=== PATIENT | female | born 1995 | race Caucasian/White ===

== ENCOUNTER 2019-02-04 14:59 | Emergency (ER) | payer OTHER ==
[~2019-02-04] VITALS: Ht 165.1 cm; Wt 48.6 kg
[2019-02-04 15:47] VITALS: BP 122/77; Ht 165.1 cm; Wt 48.6 kg
== END 2019-02-04 17:16 | disposition home or self-care (01) ==
LOC: ED 14:59
DX: J11.1 Influenza due to unidentified influenza virus with other respiratory manifestations (principal); Z88.5 Allergy status to narcotic agent

== ENCOUNTER 2019-06-19 15:27 | Emergency (ER) | payer OTHER ==
[~2019-06-19] VITALS: Ht 165.1 cm; Wt 58.1 kg
[2019-06-19 15:35] VITALS: Ht 165.1 cm; Wt 58.1 kg
[2019-06-19 17:04] VITALS: BP 109/59
== END 2019-06-19 17:04 | disposition home or self-care (01) ==
LOC: ED 15:27
DX: S92.491A Other fracture of right great toe, initial encounter for closed fracture (principal); Z88.5 Allergy status to narcotic agent; W23.0XXA Caught, crushed, jammed, or pinched between moving objects, initial encounter; Y93.89 Activity, other specified; Y92.89 Other specified places as the place of occurrence of the external cause; Y99.8 Other external cause status